=== PATIENT | female | born 2000 | race Two or more races ===

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

== ENCOUNTER 2018-01-19 08:00 | Outpatient (CLI) | payer SELFPAY ==
[2018-01-19 13:01] LABS: HCG,QUALITATIVE BLOOD NEGATIVE
== END 2018-01-19 08:01 | disposition home or self-care (01) ==
LOC: LAB.N 08:00
PROVIDERS: ATTEND Nurse Practitioner Gerontology
DX: N91.2 Amenorrhea, unspecified (principal)
CPT/HCPCS: 36415; 84703

== ENCOUNTER 2018-04-03 16:19 | Outpatient (CLI) | payer MEDICAID | END 2018-04-03 16:20 | disposition home or self-care (01) | LOC: LAB.R 16:19 | PROVIDERS: ATTEND Obstetrics & Gynecology | DX: Z36.9 Encounter for antenatal screening, unspecified (principal); Z11.3 Encounter for screening for infections with a predominantly sexual mode of transmission | CPT/HCPCS: 87491; 87591 ==

== ENCOUNTER 2018-04-26 08:00 | Outpatient (CLI) | payer MEDICAID ==
[2018-04-26 12:31] LABS: BILIRUBIN,URINE NEGATIVE (NEGATIVE); GLUCOSE, URINE (UA) NEGATIVE (NEGATIVE); KETONES,URINE (UA) NEGATIVE (NEGATIVE); LEUKOCYTE ESTERASE, URINE NEGATIVE (NEGATIVE); NITRITE,URINE NEGATIVE (NEGATIVE); OCCULT BLOOD,URINE NEGATIVE (NEGATIVE); PROTEIN,URINE NEGATIVE (NEGATIVE); UROBILINOGEN,URINE 0.2 (NORMAL) E.U./dL (NORMAL)
[2018-04-26 12:32] LABS: CLARITY,URINE CLOUDY (CLEAR)
[2018-04-26 12:52] LABS: BASOPHILS % (AUTO) 0.3 %; EOSINOPHILS % (AUTO) 0.4 %; HGB - HEMOGLOBIN 10.9 g/dL (12.0-16.0); LYMPHOCYTES # (AUTO) 1.3 10^3/uL (1.5-3.5); MEAN CORPUSCULAR HEMOGLOBIN 25.1 pg (27.0-31.0); MEAN CORPUSCULAR HGB CONC 32.7 g/dL (32.0-36.0); MEAN CORPUSCULAR VOLUME 76.7 fL (81.0-99.0); MEAN PLATELET VOLUME 7.8 fL (7.9-10.8); MONOCYTES # (AUTO) 0.7 10^3/uL (0.0-1.0); MONOCYTES % (AUTO) 6.8 %; NEUTROPHILS # (AUTO) 8.4 10^3/uL (1.5-6.6); NEUTROPHILS % (AUTO) 80.5 %; PLT - PLATELET COUNT 277 10^3/uL (130-450); RED BLOOD COUNT 4.34 10^6/uL (4.20-5.40); RED CELL DISTRIBUTION WIDTH 23.7 % (12.0-15.0); WHITE BLOOD COUNT 10.4 x10^3/uL (4.8-10.8)
[2018-04-26 13:13] LABS: AMORPHOUS SEDIMENT,UR Marked /LPF; BACTERIA,URINE None Seen /HPF (None Seen); RBC,URINE 0-5 /HPF (0-5); SQUAMOUS EPITHELIAL CELL,UR MOD Squamous (<= Few)
[2018-04-26 13:54] LABS: PLATELET ESTIMATE, MANUAL NORMAL (130-450,000) (NORMAL); PLATELET MORPHOLOGY NORMAL APPEARANCE (NORMAL); RBC MORPHOLOGY (MULTIPLE) 1+ ANISOCYTOSIS (NORMAL)
[2018-04-27 13:46] LABS: HEPATITIS B SURFACE ANTIGEN NON-REACTIVE (NON-REACTIVE); HEPATITIS C ANTIBODY NON-REACTIVE (NON-REACTIVE)
[2018-04-27 16:17] LABS: HIV AG/AB 4TH GEN NON-REACTIVE (NON-REACTIVE)
== END 2018-04-26 08:01 | disposition home or self-care (01) ==
LOC: LAB.N 08:00
PROVIDERS: ATTEND Obstetrics & Gynecology
DX: Z36.9 Encounter for antenatal screening, unspecified (principal); Z11.3 Encounter for screening for infections with a predominantly sexual mode of transmission
CPT/HCPCS: 36415; 81001; 81599; 85025; 86592; 86762; 86803; 86850; 86900; 86901; 87340; 87389

== ENCOUNTER 2018-05-18 11:28 | Emergency (ER) | payer MEDICAID ==
[2018-05-18 11:38] VITALS: BP 105/73
[2018-05-18] MEDS ORDERED: METOCLOPRAMIDE 10 MG/2 ML VIAL IVP STA (12:44)
[2018-05-18] MEDS ORDERED: SODIUM CHLORIDE 0.9% 1,000 ML IV ONE (12:44)
[2018-05-18] MEDS ORDERED: ACETAMINOPHEN 500 MG TABLET PO STA (12:44)
[2018-05-18 13:32] LABS: BASOPHILS % (AUTO) 0.6 %; EOSINOPHILS % (AUTO) 0.4 %; HGB - HEMOGLOBIN 11.8 g/dL (12.0-16.0); LYMPHOCYTES # (AUTO) 1.2 10^3/uL (1.5-3.5); MEAN CORPUSCULAR HEMOGLOBIN 26.8 pg (27.0-31.0); MEAN CORPUSCULAR HGB CONC 33.4 g/dL (32.0-36.0); MEAN CORPUSCULAR VOLUME 80.1 fL (81.0-99.0); MEAN PLATELET VOLUME 7.4 fL (7.9-10.8); MONOCYTES # (AUTO) 0.6 10^3/uL (0.0-1.0); MONOCYTES % (AUTO) 8.2 %; NEUTROPHILS # (AUTO) 5.9 10^3/uL (1.5-6.6); NEUTROPHILS % (AUTO) 75.8 %; PLT - PLATELET COUNT 249 10^3/uL (130-450); RED BLOOD COUNT 4.39 10^6/uL (4.20-5.40); RED CELL DISTRIBUTION WIDTH 21.8 % (12.0-15.0); WHITE BLOOD COUNT 7.8 x10^3/uL (4.8-10.8)
[2018-05-18 13:43] LABS: ALBUMIN 3.4 g/dL (3.2-5.5); BILIRUBIN,TOTAL 0.3 mg/dL (0.2-1.0); CALCIUM 8.8 mg/dL (8.5-10.3); CREATININE 0.3 mg/dL (0.4-1.0); MAGNESIUM 1.8 mg/dL (1.7-2.8); TOTAL PROTEIN 6.8 g/dL (6.7-8.2)
[2018-05-18 13:48] LABS: BILIRUBIN,URINE NEGATIVE (NEGATIVE); GLUCOSE, URINE (UA) NEGATIVE (NEGATIVE); KETONES,URINE (UA) NEGATIVE (NEGATIVE); LEUKOCYTE ESTERASE, URINE NEGATIVE (NEGATIVE); NITRITE,URINE NEGATIVE (NEGATIVE); OCCULT BLOOD,URINE NEGATIVE (NEGATIVE); PH,URINE 7.5 PH (5.0-7.5); PROTEIN,URINE NEGATIVE (NEGATIVE); UROBILINOGEN,URINE 0.2 (NORMAL) E.U./dL (NORMAL)
[2018-05-18 13:50] LABS: CLARITY,URINE CLOUDY (CLEAR)
[2018-05-18 13:55] LABS: AMORPHOUS SEDIMENT,UR Marked /LPF; BACTERIA,URINE None Seen /HPF (None Seen); RBC,URINE None Seen /HPF (0-5); SQUAMOUS EPITHELIAL CELL,UR MANY Squamous (<= Few)
[2018-05-18 14:22] LABS: PLATELET ESTIMATE, MANUAL NORMAL (130-450,000) (NORMAL); PLATELET MORPHOLOGY NORMAL APPEARANCE (NORMAL)
--- NOTE | 2018-05-18 14:40 | ED Physician Documentation ---
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 The patient reports at the end of the day feeling burning throughout her abdomen. The patient currently denies any acute abdominal pain or focal area of abdominal pain. The patient currently denies nausea or vomiting. Currently the patient feels well and has no acute symptoms. The patient denies vaginal bleeding or vaginal discharge or pressure in her pelvis. No other associated symptoms. Currently no symptoms. When she does have symptoms they are moderate. Review of Systems Constitutional: denies: Fever, Chills Eyes: denies: Discharge Ears: denies: Ear pain Nose: denies: Congestion Throat: denies: Dental pain / toothache Cardiac: denies: Chest pain / pressure Respiratory: denies: Dyspnea GI: reports: Abdominal Pain, Nausea, Vomiting : denies: Dysuria, Hematuria, Vaginal bleeding Skin: denies: Rash Musculoskeletal: denies: Neck pain Neurologic: denies: Generalized weakness Immunocompromised: denies: Chemotherapy PD PAST MEDICAL HISTORY - Past Medical History Past Medical History: No Cardiovascular: None Respiratory: None Neuro: None Endocrine/Autoimmune: None GI: None 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 : None HEENT: None Psych: None Musculoskeletal: None Derm: None - Past Surgical History Past Surgical History: No - Present Medications Home Medications: Ambulatory Orders Medication Instructions Recorded Confirmed Metoclopramide [Reglan] 10 mg PO Q6H PRN #30 tablet 05/18/18 - Allergies Allergies/Adverse Reactions: Allergies Allergy/AdvReac Type Severity Reaction Status Date / Time No Known Drug Allergies Allergy Verified 05/18/18 11:38 - Social History Does the pt smoke?: No Smoking Status: Never smoker Does the pt drink ETOH?: No Does the pt have substance abuse?: No - Immunizations Immunizations are current?: Yes - POLST Patient has POLST: No PD ED PE NORMAL - General General: Alert and oriented X 3, No acute distress - HEENT HEENT: Atraumatic, PERRL, EOMI, Ears normal - Neck Neck: Supple, no meningeal sign - Cardiac Cardiac: RRR, Strong equal pulses - Respiratory Respiratory: No respiratory distress, Clear bilaterally - Abdomen Abdomen: Normal bowel sounds, Soft, Non tender, Non distended - Back Back: No CVA TTP - Derm Derm: Normal color, Warm and dry, No rash - Extremities Extremities: No deformity, Normal ROM s pain - Neuro Neuro: Alert and oriented X 3, Normal speech - Psych Psych: Normal mood Results - Vitals Vitals: Vital Signs - 24 hr 05/18/18 11:36 Temperature 36.8 C Heart Rate 92 Respiratory 16 Rate Blood Pressure 105/73 O2 Saturation 99 Oxygen O2 Source Room air - Labs Labs: Laboratory Tests 05/18/18 05/18/18 05/18/18 11:45 13:10 13:10 WBC 7.8 RBC 4.39 Hgb 11.8 L Hct 35.2 L MCV 80.1 L MCH 26.8 L MCHC 33.4 RDW 21.8 H Plt Count 249 MPV 7.4 L Neut # (Auto) 5.9 Lymph # (Auto) 1.2 L [place] # (Auto) 0.6 Eos # (Auto) 0.0 Baso # (Auto) 0.0 Absolute Nucleated RBC 0.00 Nucleated RBC % 0.0 Manual Slide Review Indicated WBC Morphology NORMAL APPEARANCE Platelet Estimate NORMAL (130-450,000) Platelet Morphology NORMAL APPEARANCE RBC Morph Micro Appear 1+ OVALOCYTES Sodium 134 L Potassium 3.6 Chloride 107 Carbon Dioxide 19 L Anion Gap 8.0 BUN 5 L Creatinine 0.3 L Estimated GFR (MDRD) 287 Glucose 82 Calcium 8.8 Magnesium 1.8 Total Bilirubin 0.3 AST 21 ALT 13 Alkaline Phosphatase 58 Total Protein 6.8 Albumin 3.4 Globulin 3.4 Albumin/Globulin Ratio 1.0 Lipase 24 Urine Color YELLOW Urine Clarity CLOUDY Urine pH 7.5 Ur Specific Levels 1.010 Urine Protein NEGATIVE Urine Glucose (UA) NEGATIVE Urine Ketones NEGATIVE Urine Occult Blood NEGATIVE Urine Nitrite NEGATIVE Urine Bilirubin NEGATIVE Urine Urobilinogen 0.2 (NORMAL) Ur Leukocyte Esterase NEGATIVE Urine RBC None Seen Urine WBC 4-5 Ur Squamous Epith Cells MANY Squamous H Amorphous Sediment Marked Urine Bacteria None Seen Ur Microscopic Review INDICATED Urine Culture Comments NOT INDICATED PD MEDICAL DECISION MAKING - ED course ED course: On reevaluation the patient still continues to have no acute symptoms. The patient currently has no abdominal pain or focal area of abdominal tenderness. Currently the patient appears appropriate for discharge home and ongoing outpatient management. The patient has reassuring heart tones which are in the 140s. I discussed with the patient warning signs for more serious etiology, including appendicitis and gave warning signs. I advise close follow- up with her ADVISOR [employer]. I advised returning to the emergency department immediately for worsening or any concerns. - Sepsis Event Vital Signs: Vital Signs - 24 hr 05/18/18 11:36 Temperature 36.8 C Heart Rate 92 Respiratory 16 Rate Blood Pressure 105/73 O2 Saturation 99 Oxygen O2 Source Room air Departure - Departure Disposition: Home, Self Care Clinical Impression: Abdominal pain affecting Nausea and vomiting Qualifiers: Vomiting type: unspecified Vomiting Intractability: non-intractable Qualified Code(s): R11.2 - Nausea with vomiting, unspecified Condition: Good Instructions: Abdominal Pain, ED Preg Morning Sickness Prescriptions: Metoclopramide [Reglan] 10 mg PO Q6H PRN #30 tablet PRN Reason: Nausea / Vomiting Comments: Please follow-up with your ADVISOR [employer] in 1 week. Please return to the emergency department for worsening symptoms or any concerns.
== END 2018-05-18 15:01 | disposition home or self-care (01) ==
LOC: ED 11:28
DX: O99.89 Other specified diseases and conditions complicating pregnancy, childbirth and the puerperium (principal); R10.9 Unspecified abdominal pain; Z3A.16 16 weeks gestation of pregnancy
CPT/HCPCS: 36415; 80053; 81001; 83690; 83735; 85025; 96374; 99283; A9270; J2765; 81003; 87086

== ENCOUNTER 2018-05-28 17:14 | Outpatient (CLI) | payer MEDICAID | END 2018-05-28 17:15 | disposition home or self-care (01) | LOC: LAB 17:14 | PROVIDERS: ATTEND Obstetrics & Gynecology | DX: Z13.79 Encounter for other screening for genetic and chromosomal anomalies (principal) | CPT/HCPCS: 36415; 81599; 82105; 82677; 84702; 86336 ==

== ENCOUNTER 2018-06-18 12:37 | Outpatient (CLI) | payer MEDICAID ==
--- NOTE | 2018-06-18 14:37 | Ultrasound Report ---
Procedure Date: 06/18/2018 Accession Number: [id number] / [id number] Procedure: US - OB Detailed Eval CPT Code: FULL RESULT: EXAM: COMPLETE OBSTETRICAL ULTRASOUND EXAM DATE: 06/18/2018 02:00 PM. CLINICAL HISTORY: anatomic survey. COMPARISON: None. TECHNIQUE: Real-time sonographic evaluation of the fetus performed by the pipe cleaner. Multiple hospital insurance representative static images were saved for review. DATING: LMP: Uncertain EGA 20 weeks 1 day with CHUN 11/04/2018 based on the current ultrasound. GENERAL EVALUATION Mcdonnell . Cardiac activity: 157 bpm. movement: Present. Presentation: Cephalic. Placenta: Posterior position. No evidence for previa. Umbilical cord: 3 vessel cord. Central placental cord origin. Amniotic fluid: Subjectively normal. MVP 4.5 cm. BIOMETRY Bi-Parietal Diameter (BPD): 4.6 cm, 20 weeks 0 days Head Circumference (HC): 17.3 cm, 19 weeks 6 days Abdominal Circumference (AC): 14.8 cm, 20 weeks 0 days Femur Length (FL): 3.3 cm, 20 weeks 3 days Estimated Weight: 338 gm. ANATOMY The intracranial structures, profile, face/nose/lips, spine, 4 chamber heart and outflow tracts, stomach, abdominal wall and cord insertion, diaphragm, kidneys, bladder, and extremities were seen and demonstrate no abnormality. MATERNAL STRUCTURES Uterus: Unremarkable. Cervix: Long and closed. Transabdominal length cm. Right ovary/adnexa: Unremarkable. Left ovary/adnexa: Unremarkable. Free fluid: None. IMPRESSION: 1. Mcdonnell intrauterine with gestational age 20 weeks 1 day based on composite ultrasound measurements today. CHUN 11/04/2018. 2. Estimated weight is within expected limits for assigned dating. 3. Normal anatomic survey. No anatomic abnormalities are detected at this time. [facility]
== END 2018-06-18 12:38 | disposition home or self-care (01) ==
LOC: DI 12:37
PROVIDERS: ATTEND Obstetrics & Gynecology
DX: Z36.9 Encounter for antenatal screening, unspecified (principal)
CPT/HCPCS: 76811

== ENCOUNTER 2018-10-01 08:00 | Outpatient (CLI) | payer MEDICAID ==
[2018-10-01 19:27] LABS: HGB - HEMOGLOBIN 13.6 g/dL (12.0-16.0); MEAN CORPUSCULAR HEMOGLOBIN 30.9 pg (27.0-31.0); MEAN CORPUSCULAR HGB CONC 33.1 g/dL (32.0-36.0); MEAN CORPUSCULAR VOLUME 93.3 fL (81.0-99.0); MEAN PLATELET VOLUME 8.9 fL (7.9-10.8); RED BLOOD COUNT 4.41 10^6/uL (4.20-5.40); RED CELL DISTRIBUTION WIDTH 15.1 % (12.0-15.0); WHITE BLOOD COUNT 10.7 x10^3/uL (4.8-10.8)
== END 2018-10-01 23:59 | disposition home or self-care (01) ==
LOC: LAB.N 08:00
PROVIDERS: ATTEND Registered Nurse
DX: Z33.1 Pregnant state, incidental (principal)
CPT/HCPCS: 36415; 82950; 85027; 86850

== ENCOUNTER 2018-10-09 08:00 | Outpatient (CLI) | payer MEDICAID | END 2018-10-09 23:59 | disposition home or self-care (01) | LOC: LAB.R 08:00 | PROVIDERS: ATTEND Obstetrics & Gynecology | DX: Z3A.36 36 weeks gestation of pregnancy (principal) | CPT/HCPCS: 87081 ==

== ENCOUNTER 2018-10-13 14:41 | Outpatient (CLI) | payer MEDICAID ==
[2018-10-13 14:53] VITALS: BP 132/79
== END 2018-10-13 15:10 | disposition home or self-care (01) ==
LOC: WFO 14:41 → FBP 14:43 → WFO 15:10
PROVIDERS: ATTEND Obstetrics & Gynecology
DX: O99.89 Other specified diseases and conditions complicating pregnancy, childbirth and the puerperium (principal); R04.2 Hemoptysis
CPT/HCPCS: 59025

== ENCOUNTER 2018-10-13 15:11 | Emergency (ER) | payer MEDICAID ==
[2018-10-13 15:16] VITALS: BP 113/79
--- NOTE | 2018-10-13 15:24 | ED Physician Documentation ---
PD HPI CHEST PAIN - Stated complaint Stated Complaint: COUGHING UP BLOOD/37 WKS - Chief complaint Chief Complaint: Resp - History obtained from History obtained from: Patient - History of Present Illness Timing - onset: Other (This is a 18-year-old G1 who is 37 weeks . No problems with this , her OB is Dr. Felicia Palomo. She is been progressively short of breath throughout the late which does not concern her too much but she also notes bilateral pedal edema, right greater than left for the last week and today went to labor and delivery because she had several episodes of hemoptysis today. She continues to have a cough. There is no chest pain. There is no further hemoptysis.) Review of Systems Ten Systems: 10 systems reviewed and negative Constitutional: denies: Fever, Chills, Myalgias Ears: denies: Loss of hearing, Ear pain Nose: denies: Rhinorrhea / runny nose, Congestion, Epistaxis Throat: denies: Sore throat Cardiac: denies: Chest pain / pressure, Palpitations Respiratory: reports: Dyspnea, Cough, Hemoptysis. 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 - Past Surgical History Past Surgical History: No - Present Medications Home Medications: Ambulatory Orders Medication Instructions Recorded Confirmed No Known Home Medications 10/13/18 10/13/18 - Allergies Allergies/Adverse Reactions: Allergies Allergy/AdvReac Type Severity Reaction Status Date / Time No Known Drug Allergies Allergy Verified 10/13/18 15:16 - Social History Does the pt smoke?: No Smoking Status: Never smoker Does the pt drink ETOH?: No Does the pt have substance abuse?: No - Immunizations Immunizations are current?: Yes - POLST Patient has POLST: No PD ED PE NORMAL - Vitals Vital signs reviewed: Yes - General General: Alert and oriented X 3, No acute distress - HEENT HEENT: PERRL, EOMI, Pharynx benign - Neck Neck: Supple, no meningeal sign, No bony TTP - Cardiac Cardiac: RRR, No murmur - Respiratory Respiratory: No respiratory distress, Clear bilaterally - Abdomen Abdomen: Non tender (gravid) - Back Back: No CVA TTP, No spinal TTP - Derm Derm: Normal color, Warm and dry - Extremities Extremities: Other (Mild bilateral pedal edema, right greater than left without calf tenderness.) - Neuro Neuro: Alert and oriented X 3, Normal speech Results - Vitals Vitals: Vital Signs - 24 hr 10/13/18 15:15 Temperature 36.6 C Heart Rate 74 Respiratory 18 Rate Blood Pressure 113/79 O2 Saturation 98 Oxygen O2 Source Room air - Labs Labs: Laboratory Tests 10/13/18 10/13/18 10/13/18 15:27 15:27 15:27 WBC 11.4 H RBC 4.17 L Hgb 13.2 Hct 38.2 MCV 91.7 MCH 31.6 H MCHC 34.5 RDW 15.1 H Plt Count 235 MPV 8.5 Neut # (Auto) 8.6 H Lymph # (Auto) 1.9 [place] # (Auto) 0.8 Eos # (Auto) 0.0 Baso # (Auto) 0.0 Absolute Nucleated RBC 0.01 Nucleated RBC % 0.1 D-Dimer 383.9 H Sodium 134 L Potassium 4.1 Chloride 108 Carbon Dioxide 18 L Anion Gap 8.0 BUN 12 Creatinine 0.5 Estimated GFR (MDRD) 157 Glucose 102 H Calcium 8.9 Total Bilirubin 0.4 AST 23 ALT 20 Alkaline Phosphatase 176 H Total Protein 6.8 Albumin 3.0 L Globulin 3.8 Albumin/Globulin Ratio 0.8 L Lipase 23 - Rads (name of study) 2v chest Radiology: EMP read contemporaneously (normal) PD MEDICAL DECISION MAKING - ED course ED course: 18-year-old presents with cough and some hemoptysis. Given her status concern for PE. Her lower extremity Doppler is negative and her d-dimer although flags is positive it is less than 2.5 times the upper limit of normal which is what is accepted by most experts for the third trimester of . Departure - Departure Disposition: 01 Home, Self Care Clinical Impression: Hemoptysis Upper respiratory tract infection Qualifiers: URI type: unspecified viral URI Qualified Code(s): J06.9 - Acute upper respiratory infection, unspecified Qualifiers: Weeks of gestation: 37 weeks Qualified Code(s): Z3A.37 - 37 weeks gestation of Condition: Good Record reviewed to determine appropriate education?: Yes Instructions: ED Viral Syndrome Comments: Return for any new or worsening symptoms, especially if you become more short of breath or dizzy.
[2018-10-13 15:33] LABS: BASOPHILS % (AUTO) 0.3 %; EOSINOPHILS % (AUTO) 0.2 %; HGB - HEMOGLOBIN 13.2 g/dL (12.0-16.0); LYMPHOCYTES # (AUTO) 1.9 10^3/uL (1.5-3.5); LYMPHOCYTES % (AUTO) 16.7 %; MEAN CORPUSCULAR HEMOGLOBIN 31.6 pg (27.0-31.0); MEAN CORPUSCULAR HGB CONC 34.5 g/dL (32.0-36.0); MEAN CORPUSCULAR VOLUME 91.7 fL (81.0-99.0); MEAN PLATELET VOLUME 8.5 fL (7.9-10.8); MONOCYTES # (AUTO) 0.8 10^3/uL (0.0-1.0); MONOCYTES % (AUTO) 7.2 %; NEUTROPHILS # (AUTO) 8.6 10^3/uL (1.5-6.6); NEUTROPHILS % (AUTO) 75.6 %; PLT - PLATELET COUNT 235 10^3/uL (130-450); RED BLOOD COUNT 4.17 10^6/uL (4.20-5.40); RED CELL DISTRIBUTION WIDTH 15.1 % (12.0-15.0); WHITE BLOOD COUNT 11.4 x10^3/uL (4.8-10.8)
[2018-10-13 15:47] LABS: ALBUMIN/GLOBULIN RATIO 0.8 (1.0-2.2); BILIRUBIN,TOTAL 0.4 mg/dL (0.2-1.0); CALCIUM 8.9 mg/dL (8.5-10.3); CREATININE 0.5 mg/dL (0.4-1.0); TOTAL PROTEIN 6.8 g/dL (6.7-8.2)
--- NOTE | 2018-10-13 16:09 | XRAY Report ---
Reason: Cough, hemoptysis, shield abd Procedure Date: 10/13/2018 Accession Number: [id number] / [id number] Procedure: XR - Chest 2 View X-Ray CPT Code: 69221 FULL RESULT: EXAM: CHEST RADIOGRAPHY EXAM DATE: 10/13/2018 03:47 PM. CLINICAL HISTORY: Cough, hemoptysis, shield abd. COMPARISON: 02/27/2008. TECHNIQUE: 2 views. FINDINGS: Lungs/Pleura: No focal consolidation. No pleural effusion. No pneumothorax. Normal volumes. Mediastinum: Heart and mediastinal contours are normal. Other: None. IMPRESSION: No acute cardiopulmonary abnormality. [facility]
--- NOTE | 2018-10-13 16:39 | Ultrasound Report ---
Reason: BLE edema R>L Procedure Date: 10/13/2018 Accession Number: [id number] / [id number] Procedure: US - Duplex Ext Veins Bilateral CPT Code: FULL RESULT: EXAM: BILATERAL LOWER EXTREMITY VENOUS ULTRASOUND EXAM DATE: 10/13/2018 04:28 PM. CLINICAL HISTORY: Bilateral lower extremity edema. COMPARISON: None. TECHNIQUE: Real-time sonographic vascular imaging was performed by the managing consultant clinical professor through the lower extremities utilizing both color-flow and Doppler spectral analysis. Multiple guest experience representative static images were saved for review. FINDINGS: Right: Common Femoral Vein (CFV): Normal. CFV-GSV Junction: Normal. Profunda Femoral Vein (PFV): Normal. Femoral Vein (FV) Prox: Normal. Femoral Vein (FV) Mid: Normal. Femoral Vein (FV) Dist: Normal. Popliteal Vein: Normal. Posterior Tibial Veins: Normal. Peroneal Veins: Normal. Left: Common Femoral Vein (CFV): Normal. CFV-GSV Junction: Normal. Profunda Femoral Vein (PFV): Normal. Femoral Vein (FV) Prox: Normal. Femoral Vein (FV) Mid: Normal. Femoral Vein (FV) Dist: Normal. Popliteal Vein: Normal. Posterior Tibial Veins: Normal. Peroneal Veins: Normal. Other: None. IMPRESSION: No evidence for deep venous thrombosis bilaterally. [facility]
== END 2018-10-13 16:54 | disposition home or self-care (01) ==
LOC: ED 15:11
DX: O99.89 Other specified diseases and conditions complicating pregnancy, childbirth and the puerperium (principal); R04.2 Hemoptysis; J06.9 Acute upper respiratory infection, unspecified; Z3A.37 37 weeks gestation of pregnancy
CPT/HCPCS: 36415; 59025; 71046; 80053; 83690; 85025; 85379; 93970; 99282; 99283

== ENCOUNTER 2018-10-19 16:02 | Outpatient (CLI) | payer MEDICAID ==
[2018-10-19 16:55] LABS: RUPTURE OF MEMBRANES PLUS NEGATIVE (NEGATIVE)
== END 2018-10-19 17:45 | disposition home or self-care (01) ==
LOC: WFO 16:02 → FBP 16:04 → WFO 17:45
PROVIDERS: ATTEND Obstetrics & Gynecology
DX: O99.89 Other specified diseases and conditions complicating pregnancy, childbirth and the puerperium (principal); R10.2 Pelvic and perineal pain; Z3A.37 37 weeks gestation of pregnancy
CPT/HCPCS: 59025; 84112

== ENCOUNTER 2018-10-19 23:32 | Outpatient (CLI) | payer MEDICAID ==
[2018-10-20] MEDS ORDERED: MORPHINE 10 MG/ML VIAL IVP ONE (01:10)
[2018-10-20] MEDS ORDERED: MORPHINE 10 MG/ML VIAL IM PRN (01:12)
[2018-10-20] MEDS ORDERED: PROMETHAZINE 25 MG/1 ML VIAL IM PRN (01:15)
[2018-10-20 04:13] VITALS: BP 130/81
--- NOTE | 2018-10-20 15:29 | PROVIDER PROGRESS NOTE ---
Subjective - Prog Note Date Prog Note Date: 10/19/18 Prog Note Time: 19:00 - Subjective Subjective: Nancy Rooney is a 18-year-old primigravida at 37 weeks 5 days gestation who complains of pelvic pressure and contractions. She was seen earlier in the day in the office and found to have a low station +2 with a far posterior cervix. Cervix was dilated no greater than 2 and it was difficult to tell effacement. She did not believe she was leaking of fluids. She was sent for observation and serial's cervical exam. Physical exam Patient quite nervous since this is her first child. She has no signs or symptoms suggestive of preeclampsia. External heart tracing reactive, category 1 baseline 140s with multiple accelerations rare mild variable deceleration Uterine irritability with a background contraction rate of about every 6minutes. Cervix essentially unchanged on serial exam is still at 1-2 posterior with a low station of +2. Patient advised of signs and symptoms of labor. She was given therapeutic rest morphine 10 mg with Phenergan 25 mg IM patient to return next week as scheduled unless labor ensues.
== END 2018-10-20 02:19 | disposition home or self-care (01) ==
LOC: WFO 23:32 → FBP 23:46 → WFO 10-20 02:19
PROVIDERS: ATTEND Obstetrics & Gynecology
DX: O99.89 Other specified diseases and conditions complicating pregnancy, childbirth and the puerperium (principal); R10.2 Pelvic and perineal pain; Z3A.37 37 weeks gestation of pregnancy
CPT/HCPCS: 59025; 84112; 99212

== ENCOUNTER 2018-10-21 17:38 | Outpatient (CLI) | payer MEDICAID ==
[2018-10-21 18:03] VITALS: BP 131/74
[2018-10-21 19:02] LABS: RUPTURE OF MEMBRANES PLUS NEGATIVE (NEGATIVE)
--- NOTE | 2018-10-22 07:31 | PROVIDER PROGRESS NOTE ---
Subjective - Prog Note Date Prog Note Date: 10/21/18 Prog Note Time: 19:00 - Subjective Subjective: Mrs. Hernández is a 18-year-old primigravida at 38 weeks 1 day gestation. She reports possible leakage of fluid. She is known to have a low head at +2 station and therefore pelvic pressure. SROM was done which was negative. Nursing cervical examination finds +2 station 1cm non-effaced cervix which is baseline. External monitoring strip 140s excels meeting criteria no contractions record recorded no decelerations Assessment: 38-week gestation not in labor. Plan: Patient informed of exam and membranes intact. She is to keep her next scheduled obstetrics appointment Objective - Lab Results Other Labs: Lab Results x24hrs 10/21/18 Range/Units 18:00 Membranes Rupture NEGATIVE (NEGATIVE)
== END 2018-10-21 19:05 | disposition home or self-care (01) ==
LOC: WFO 17:38 → FBP 17:40 → WFO 19:05
PROVIDERS: ATTEND Obstetrics & Gynecology
DX: O99.89 Other specified diseases and conditions complicating pregnancy, childbirth and the puerperium (principal); R10.2 Pelvic and perineal pain; Z3A.38 38 weeks gestation of pregnancy
CPT/HCPCS: 84112; 99213

== ENCOUNTER 2018-10-25 18:51 | Inpatient (IN) | payer MEDICAID ==
[2018-10-25] MEDS ORDERED: ONDANSETRON 4 MG/2 ML VIAL IVP PRN ×2 (20:20→23:59)
[2018-10-25] MEDS ORDERED: fentaNYL 100 MCG/2 ML VIAL IVP PRN (20:20)
[2018-10-25] MEDS: LACTATED RINGERS 1,000 ML IV SCH ×2 (21:12→23:08)
[2018-10-25 21:45] LABS: BASOPHILS % (AUTO) 0.4 %; EOSINOPHILS % (AUTO) 0.3 %; HGB - HEMOGLOBIN 13.3 g/dL (12.0-16.0); LYMPHOCYTES # (AUTO) 2.6 10^3/uL (1.5-3.5); LYMPHOCYTES % (AUTO) 20.4 %; MEAN CORPUSCULAR HEMOGLOBIN 32.5 pg (27.0-31.0); MEAN CORPUSCULAR HGB CONC 34.8 g/dL (32.0-36.0); MEAN CORPUSCULAR VOLUME 93.4 fL (81.0-99.0); MEAN PLATELET VOLUME 8.4 fL (7.9-10.8); MONOCYTES # (AUTO) 0.8 10^3/uL (0.0-1.0); NEUTROPHILS # (AUTO) 9.2 10^3/uL (1.5-6.6); NEUTROPHILS % (AUTO) 72.9 %; PLT - PLATELET COUNT 228 10^3/uL (130-450); RED BLOOD COUNT 4.09 10^6/uL (4.20-5.40); RED CELL DISTRIBUTION WIDTH 15.1 % (12.0-15.0); WHITE BLOOD COUNT 12.6 x10^3/uL (4.8-10.8)
--- NOTE | 2018-10-25 21:46 | HISTORY & PHYSICAL EXAMINATION ---
Admit History - Visit Reason Visit Reason: Contractions (Strong contractions at 1830) - : 1 Parity: 0 Premature: 0 Ectopic: 0 : 0 Care: positive: [facility] Risk/History: positive: None Complications This : positive: None Smoking Status: Never smoker - Mother's Labs Mother's Blood Type: positive: O Mother's RH: positive: Positive GBS: positive: Group B Step Negative Rubella Status: positive: Immune Meds/Allgy - Home Medications Home Medications: Ambulatory Orders Medication Instructions Recorded Confirmed No Known Home Medications 10/13/18 10/13/18 - Allergies Allergies/Adverse Reactions: Allergies Allergy/AdvReac Type Severity Reaction Status Date / Time No Known Drug Allergies Allergy Verified 10/13/18 15:16 Review of Systems - Constitutional Constitutional: denies: Fatigue Physical - Abdominal Exam Vital Signs: Temp Pulse Resp BP Pulse Ox 36.6 C 86 18 127/89 H 99 10/25/18 19:03 10/25/18 19:00 10/25/18 19:00 10/25/18 19:03 10/25/18 19:03 Contraction Intensity: positive: Moderate to strong Uterine Resting Tone: positive: Soft - Monitoring Strip Review: positive: Category I - Presentation Presentation: positive: Vertex - Vaginal Exam Membranes: positive: Membranes intact Dilation (in cm): 5 Effacement (%): 90 Station: positive: 1 Cervical Position: positive: Posterior Plan for Labor - Plan For Labor I expect patient to be DC'd or transferred within 96 hours.: Yes Plan for Labor: Pt is a 18 yo EDC 11/04/2018, 38.5 weeks spontanious labor Admit Epidural PRN
[2018-10-25] MEDS ORDERED: LACTATED RINGERS 1,000 ML IV ONE (22:47)
[2018-10-25] MEDS ORDERED: fent/BUPIV 2 MCG/0.125% 250 ML EP ONE (23:05)
--- NOTE | 2018-10-25 23:55 | ANESTHESIA ---
Pre-Anesthesia VS, & Labs - Diagnosis IUP, term labor - Procedure KHAI Vital Signs: Temp Pulse Resp BP Pulse Ox 37.4 C 86 18 127/89 H 99 10/25/18 22:00 10/25/18 19:00 10/25/18 19:00 10/25/18 19:03 10/25/18 19:03 Height 5 ft 1 in Weight (kg) 66.678 kg Body Mass Index 27.8 - NPO Last Fluid Intake: t/o day - Is Patient ?: Yes - Lab Results Current Lab Results: Laboratory Tests 10/25/18 21:25: WBC 12.6 H, RBC 4.09 L, Hgb 13.3, Hct 38.2, MCV 93.4, MCH 32.5 H , MCHC 34.8, RDW 15.1 H, Plt Count 228, MPV 8.4, Neut # (Auto) 9.2 H, Lymph # (Auto) 2.6, [place] # (Auto) 0.8, Eos # (Auto) 0.0, Baso # (Auto) 0.0, Absolute Nucleated RBC 0.00, Nucleated RBC % 0.0 Fish Bones: 10/25/18 21:25 Home Medications and Allergies Active Medications Fentanyl (Fentanyl) 50 mcg IVP Q1H PRN PRN Reason: PAIN Lactated Ringer's (Lr) 1,000 mls @ 150 mls/hr IV .Q6H40M MALAIKA Last Admin: 10/25/18 23:08 Dose: 150 mls/hr Oxytocin/Sodium Chloride (Pitocin/Sodium Chloride) 500 mls @ 1 mls/hr IV TITR MALAIKA; Protocol Ondansetron HCl (Zofran Inj) 4 mg IVP Q4H PRN PRN Reason: Nausea / Vomiting Sodium Chloride (Normal Saline Flush 0.9%) 10 ml IVP PRN PRN PRN Reason: NEEDED PER PROVIDER ORDERS No Known Home Medications 10/13/18 Allergies/Adverse Reactions: Allergies Allergy/AdvReac Type Severity Reaction Status Date / Time No Known Drug Allergies Allergy Verified 10/13/18 15:16 Anes History & Medical History - Anesthetic History Anesthesia Complications: reports: No previous complications Family history of Anesthesia Complications: Denies Family history of Malignant Hyperthermia: Denies - Medical History Cardiovascular: reports: None Pulmonary: reports: None Gastrointestinal: reports: None Urinary: reports: None Neuro: reports: None Musculoskeletal: reports: None Endocrine/Autoimmune: reports: None Blood Disorders: reports: Anemia Skin: reports: None Smoking Status: Never smoker - Obstetrical History : 1 Parity: 0 Events: positive: None Complications: positive: None Exam General: Alert, Oriented x3, Cooperative Dental: WNL Mouth Openin Fingerbreadth Neck Mobility: Normal Mallampati classification: II Cardiovascular: Regular rate Neurological: Normal speech Mental/Cognitive Status: Alert/Oriented X3 Plan Anesthesia Type: Epidural Consent for Procedure(s) Verified and Reviewed: Yes Code Status: Attempt Resuscitation ASA classification: 2-Mild systemic disease Is this case an emergency?: No
[2018-10-25] MEDS ORDERED: NALBUPHINE 10 MG/ML AMP IVP PRN (23:59)
[2018-10-25] MEDS ORDERED: fent/BUPIV 2 MCG/0.125% 250 ML EP PRN (23:59)
[2018-10-25] MEDS ORDERED: diphenhydrAMINE INJ 50 MG/ML VIAL IVP PRN (23:59)
[2018-10-26] MEDS: LACTATED RINGERS 1,000 ML IV SCH ×3 (03:05→17:47)
--- NOTE | 2018-10-26 06:36 | PROVIDER PROGRESS NOTE ---
Labor Progress Note - Uterine Monitoring Uterine Monitoring Mode: positive: External toco : 6 Contraction Intensity: positive: Mild to moderate Uterine Resting Tone: positive: Soft - Monitoring Monitor Mode: positive: External ultrasound Heart Rate Baseline: 140 Heart Rate Variability: positive: Moderate (6-25 bmp) Accelerations: positive: Present, 15x15 Decelerations: positive: None Strip Review: positive: Category I - Vaginal Exam Dilation (in cm): 5 Effacement (%): 90% Station: 1 Cervical Position: Midposition - Labor Progress Note Labor Progress Note/Additional Text: Pt is slowy progressing. AROM to help accelerate labor
[2018-10-26] MEDS ORDERED: fentaNYL 100 MCG/2 ML VIAL ONE (07:51)
[2018-10-26 08:54] LABS: CREATININE,URINE 18.7 mg/dL
[2018-10-26 08:55] LABS: TOTAL PROTEIN,URINE TIMED < 6 mg/dL
[2018-10-26] MEDS: OXYTOCIN/SODIUM CHLORIDE 500 ML IV SCH (08:55)
--- NOTE | 2018-10-26 09:19 | ANESTHESIA PROCEDURE NOTE ---
Anesthesia Epidural Template - Other Comments Other Comments: Called to evaluate epidural due to patient complains of pain with contractions. On arrival, no level of anesthesia was present. Suspect epidural catheter dislodgment. Discussed replacing epidural with patient and she agreed to proceed. Patient was placed in a sitting position and the previously placed epidural was removed with tip intact. Back was prepped with chloroprep. The L4- L5 interspace was localized with 3ml of 1% lidocaine and a 17Ga Tuohy needle was inserted. SCOTTIE was found at 5cm and a 27G ashwini needle was inserted thru tuohy with return of clear fluid. A total of 20mcg fentanyl was injected intrathecal. Flexible catheter was inserted and advanced with ease to 11cm. Negative aspiration and negative test dose was noted. Catheter was secured and previously running PCEA was continued. Patient reported she had zero pain with contractions .
--- NOTE | 2018-10-26 11:15 | PROVIDER PROGRESS NOTE ---
Labor Progress Note - Uterine Monitoring Uterine Monitoring Mode: positive: External toco : not picking up well Contraction Intensity: positive: Moderate to strong Uterine Resting Tone: positive: Soft - Monitoring Monitor Mode: positive: External ultrasound, Spiral electrode (changed from external to scalp electrode) Heart Rate Variability: positive: Moderate (6-25 bmp) (Strip went from moderate to decreased) Decelerations: positive: Variable (deep to nadar of 70 lasted 5 min.) Strip Review: positive: Category II - Vaginal Exam Dilation (in cm): 7 Effacement (%): 100 Station: 1 Cervical Position: Anterior - Labor Progress Note Labor Progress Note/Additional Text: Pt has a prolonged deceleration FSE placed as well as IUPC. strip responded to 130's with decreased variability. Pit stopped and IV bolas given strip responded. good cervical progress.
--- NOTE | 2018-10-26 12:24 | PROVIDER PROGRESS NOTE ---
Labor Progress Note - Uterine Monitoring Uterine Monitoring Mode: positive: External toco (changed to external as IUPC no t functioning.) Contraction Frequency (min/apart): 4 Contraction Intensity: positive: Moderate to strong Uterine Resting Tone: positive: Soft - Monitoring Monitor Mode: positive: Spiral electrode Heart Rate Baseline: 120 Heart Rate Variability: positive: Moderate (6-25 bmp) Accelerations: positive: Present, 15x15 (with scalp stimulation) Decelerations: positive: Variable (down to 90 lasted for 1 min) Strip Review: positive: Category II - Vaginal Exam Dilation (in cm): 8 Effacement (%): 100% Station: 1 Cervical Position: Anterior - Labor Progress Note Labor Progress Note/Additional Text: . Progressing changed to external.
[2018-10-26] MEDS ORDERED: LACTATED RINGERS 100 ML IV ONE (14:15)
--- NOTE | 2018-10-26 14:15 | PROVIDER PROGRESS NOTE ---
Labor Progress Note - Uterine Monitoring Contraction Intensity: positive: Mild to moderate Uterine Resting Tone: positive: Soft - Monitoring Monitor Mode: positive: Spiral electrode Heart Rate Baseline: 120-30 Heart Rate Variability: positive: Moderate (6-25 bmp) Decelerations: positive: None Strip Review: positive: Category II - Vaginal Exam Dilation (in cm): 8 Effacement (%): 100% Station: 1 Cervical Position: Anterior - Labor Progress Note Labor Progress Note/Additional Text: Pt has developed bright red vaginal with marked left sidedpain suspect abruption. STAT SC. R&B QAA.
[2018-10-26] MEDS ORDERED: CITRIC ACID/SODIUM CITRATE 15 ML UDC PO ONE (14:23)
[2018-10-26] MEDS ORDERED: diphenhydrAMINE INJ 50 MG/ML VIAL IVP PRN (14:34)
[2018-10-26] MEDS: CITRIC ACID/SODIUM CITRATE 15 ML UDC PO SCH ×2 (14:35→15:01)
[2018-10-26] MEDS ORDERED: LACTATED RINGERS 1,000 ML IV ONE ×2 (14:36→16:10)
--- NOTE | 2018-10-26 15:45 | OPERATIVE REPORT ---
Operative Report - General Admit Date: 10/25/18 Procedure Date: 10/26/18 Planned Procedure: STAT PLTC/S Pre-Op Diagnosis: R/O abruption Procedure Performed: STAT PLTC/S Post Op Diagnosis: low lying umbilical cord - Procedure Note Primary Surgeon: Kaz Peralta MD Secondary Surgeon: Delbert MONTOYA Anesthesia Provider: Shell Inman Anesthesia Technique: Epidural Pathology: Placenta IV Fluids (mL): 1,000 Estimated Blood Loss (mL): 500 Urine Output (mL): 400 Drain/Tube Type: Other (Vound VAC)
[2018-10-26] MEDS ORDERED: ONDANSETRON 4 MG/2 ML VIAL IVP ONE (16:00)
[2018-10-26] MEDS ORDERED: LIDOCAINE 2% 10 ML MDV SUBQ ONE (16:00)
[2018-10-26] MEDS ORDERED: LIDOCAINE-MPF 2% 5 ML VIAL IM ONE (16:00)
[2018-10-26] MEDS ORDERED: KETOROLAC 30 MG/ML VIAL IVP ONE (16:00)
[2018-10-26] MEDS ORDERED: OXYTOCIN 10 UNIT/ML VIAL IV ONE (16:00)
[2018-10-26] MEDS ORDERED: fentaNYL 100 MCG/2 ML VIAL IVP ONE (16:00)
[2018-10-26] MEDS ORDERED: MORPHINE PF 5 MG/10 ML AMP EP ONE (16:00)
[2018-10-26] MEDS ORDERED: ACETAMINOPHEN 1,000 MG/100 ML 100 ML IV ONE (16:04)
[2018-10-26] MEDS ORDERED: diphenhydrAMINE 25 MG CAPSULE PO PRN (16:12)
[2018-10-26] MEDS ORDERED: SODIUM CHLORIDE FLUSH 0.9% 10 ML SYRINGE IVP PRN (16:12)
[2018-10-26] MEDS: oxyCODONE 5 MG TABLET PO PRN ×2 (16:52→21:04)
[2018-10-26] MEDS: KETOROLAC 30 MG/ML VIAL IV SCH ×2 (17:46→22:40)
[2018-10-26] MEDS: ACETAMINOPHEN 500 MG TABLET PO SCH (17:46)
[2018-10-26] MEDS: SODIUM CHLORIDE FLUSH 0.9% 10 ML SYRINGE IVP SCH ×3 (17:47→22:40)
[2018-10-26] MEDS: SODIUM CHLORIDE FLUSH 0.9% 10 ML SYRINGE IVP PRN (20:22)
[2018-10-26] MEDS: DOCUSATE SODIUM 100 MG CAPSULE PO SCH (21:03)
[2018-10-26] MEDS: SIMETHICONE CHEW 80 MG TABLET PO SCH (22:40)
[2018-10-27] MEDS: ACETAMINOPHEN 500 MG TABLET PO SCH ×3 (00:59→16:53)
[2018-10-27] MEDS: oxyCODONE 5 MG TABLET PO PRN ×6 (00:59→23:51)
--- NOTE | 2018-10-27 01:32 | OPERATIVE REPORT ---
DATE OF SERVICE: 10/26/2018 Physician: Kaz Peralta MD PREOPERATIVE DIAGNOSES 1. Term cyesis. 2. Episodes of bradycardia. 3. Acute left lower abdominal pain with bright red vaginal bleeding, suspect abruption. POSTOPERATIVE DIAGNOSIS: Occult prolapsed cord on the right-hand side. PROCEDURE: Stat primary low transverse section. SURGEON: Dr. Kaz Peralta ANCIENT ART CURATOR: Delbert Brizuela CNM ANESTHESIA PROVIDER: Shell Inman CRNA ANESTHETIC: Epidural. FINDINGS: Live , Apgars 8 and 9, vertex presentation, with an occult prolapsed cord on patient's right-hand side. INTRAVENOUS FLUIDS: 1000 mL ESTIMATED BLOOD LOSS: 500 mL URINE OUTPUT: 200 mL PROCEDURE: Patient was taken back to the operating room in an expeditious fashion. She was prepped and draped in the usual fashion. Patient was identified. A time-out was performed, at which time her anesthesia was checked. It was noted to be adequate, so a Pfannenstiel incision was carried down through the subcutaneous tissue to the fascia and the fascia incised transversely. Then, using both blunt and sharp dissection, it was freed from the rectus abdominis. The peritoneum was entered high. Care was taken to avoid any injury to bowel or bladder. At this point, bladder flap was developed using both blunt and sharp dissection. Then, a low transverse uterine incision was accomplished using a #10 blade and bandage scissors. The cord was immediately encountered on patient's right-hand side. The was noted to be left occiput posterior. The head of the infant was rotated occiput anterior, delivered through the incision, and then the remainder of the was delivered without difficulty. Infant was vigorous at this time. The amniotic fluid was clear. Cord was doubly clamped and divided. was handed to the nursery team that was standing by. A segment of cord was then immediately clamped and sent for cord gases. Cord blood samples were obtained. Following this, the uterus was exteriorized, wrapped in a moist lap, and the placenta was delivered. The internal portion of the uterus was cleansed with a dry lap. There was no evidence of retained placental tissue. Placenta appeared to be intact. There was arterial bleeding noted on the left-hand side of the uterine incision. This was treated with a drgymm-ha-kozga of #0 Vicryl, and then the uterine incision was closed using a running locking suture of #0 Vicryl and then imbricated with #0 Vicryl. The incision showed evidence of good hemostasis without any hematomas or further bleeding noted. The cul-de-sac was cleared of any clot as well as the gutters. The estimated blood loss was accomplished at that time. It was felt to be roughly 400 mL. At this point, the uterus was delivered back into the abdominal cavity. The gutters and cul-de-sac were irrigated with copious amounts of sterile saline. The peritoneum was closed utilizing 2-0 Vicryl in a running suture, and the rectus was reapproximated with #2-0 Vicryl. The rectus showed no bleeding, so the fascia was closed utilizing looped PDS. Care was taken to bury the knot as much as possible to decrease wound discomfort. Subcutaneous tissue was reapproximated with interrupted sutures of 2-0 Vicryl, and the incision itself was closed using 4-0 Monocryl in a subcuticular stitch. A wound VAC was placed, and there was evidence of good suction at this time. At this point, patient was rolled to have her epidural removed, and there was noted to be probably 100 mL of additional blood between the legs. The estimated blood loss was revised upward to 500 mL. Sponge and needle counts were noted to be correct. Patient tolerated the procedure well and was taken to the recovery room in stable condition. TD: 10/26/2018 16:33 DEANGELO
[2018-10-27] MEDS: SODIUM CHLORIDE FLUSH 0.9% 10 ML SYRINGE IVP PRN (04:29)
[2018-10-27] MEDS: KETOROLAC 30 MG/ML VIAL IV SCH ×2 (04:29→10:38)
[2018-10-27 06:43] LABS: BASOPHILS % (AUTO) 0.2 %; EOSINOPHILS % (AUTO) 0.2 %; HGB - HEMOGLOBIN 11.3 g/dL (12.0-16.0); LYMPHOCYTES # (AUTO) 1.4 10^3/uL (1.5-3.5); LYMPHOCYTES % (AUTO) 9.5 %; MEAN CORPUSCULAR HEMOGLOBIN 32.1 pg (27.0-31.0); MEAN CORPUSCULAR HGB CONC 33.9 g/dL (32.0-36.0); MEAN CORPUSCULAR VOLUME 94.9 fL (81.0-99.0); MEAN PLATELET VOLUME 8.1 fL (7.9-10.8); MONOCYTES # (AUTO) 0.6 10^3/uL (0.0-1.0); MONOCYTES % (AUTO) 4.4 %; NEUTROPHILS # (AUTO) 12.6 10^3/uL (1.5-6.6); NEUTROPHILS % (AUTO) 85.7 %; PLT - PLATELET COUNT 194 10^3/uL (130-450); RED BLOOD COUNT 3.53 10^6/uL (4.20-5.40); RED CELL DISTRIBUTION WIDTH 15.2 % (12.0-15.0); WHITE BLOOD COUNT 14.7 x10^3/uL (4.8-10.8)
[2018-10-27] MEDS: LACTATED RINGERS 1,000 ML IV SCH ×4 (07:40→13:38)
[2018-10-27] MEDS: OXYTOCIN/SODIUM CHLORIDE 500 ML IV SCH (07:40)
[2018-10-27] MEDS: SIMETHICONE CHEW 80 MG TABLET PO SCH ×2 (08:15→15:33)
[2018-10-27] MEDS: DOCUSATE SODIUM 100 MG CAPSULE PO SCH ×2 (08:15→21:05)
[2018-10-27] MEDS: SODIUM CHLORIDE FLUSH 0.9% 10 ML SYRINGE IVP SCH (10:38)
--- NOTE | 2018-10-27 10:52 | ANESTHESIA POST OP EVALUATION ---
Anesthesia Post Eval - Post Anesthesia Eval CV Function Including HR & BP: positive: Stable Pain Control: positive: Adequate (states pain 3/10, incisional) Nausea & Vomiting: positive: Negative Mental Status: positive: Appropriate Anesthesia Complications: positive: None (Labor epidural that converted to stat C/S for vaginal bleeding, both mom and baby doing well. Discussed spinal headache at this point would be rare but to call if she develops symptoms, I also told her back pain is common for a week or two after epidural and she may take perscribed pain medications (by Dr. Peralta, he was present during my visit.) Overall the patient seemed satified with her care.)
--- NOTE | 2018-10-27 11:00 | PROVIDER PROGRESS NOTE ---
Subjective - General Admit Date: 10/25/18 Procedure Date: 10/26/18 Post Op Days: 1 Procedure Performed: STAT PLT C/S - Review of Systems Wound/Incisions: positive: Dressing dry and intact (Wound VAC) General: positive: No symptoms (Pain 3/10.) Pulmonary: positive: No symptoms Cardiovascular: positive: No symptoms Gastrointestinal: negative: Flatus Genitourinary: positive: Other (Silverman draining) Objective - Patient Data Reviewed Vital Signs: Yes Vital Signs: Vital Signs x48h Temp Pulse Resp BP Pulse Ox 10/27/18 09:37 36.8 C 89 16 129/62 97 10/27/18 03:37 37.1 C 86 16 131/79 H 98 Weight: Weight 10/25/18 10/26/18 10/27/18 23:59 23:59 23:59 Weight (kg) 66.678 kg Intake & Output: Intake and Output Totals x24h 10/25/18 10/26/18 10/27/18 23:59 23:59 23:59 Intake Total 290 2595.5 Output Total 4190 1390 Balance 290 -1594.5 -1390 - Lab Results Lab Results: 10/27/18 06:15 Other Lab Results: Lab Results x24hrs 10/27/18 Range/Units 06:15 WBC 14.7 H (4.8-10.8) x10^3/uL RBC 3.53 L (4.20-5.40) 10^6/uL Hgb 11.3 L (12.0-16.0) g/dL Hct 33.5 L (37.0-47.0) % MCV 94.9 (81.0-99.0) fL MCH 32.1 H (27.0-31.0) pg MCHC 33.9 (32.0-36.0) g/dL RDW 15.2 H (12.0-15.0) % Plt Count 194 (130-450) 10^3/uL MPV 8.1 (7.9-10.8) fL Neut # (Auto) 12.6 H (1.5-6.6) 10^3/uL Lymph # (Auto) 1.4 L (1.5-3.5) 10^3/uL [place] # (Auto) 0.6 (0.0-1.0) 10^3/uL Eos # (Auto) 0.0 (0.0-0.7) 10^3/uL Baso # (Auto) 0.0 (0.0-0.1) 10^3/uL Absolute Nucleated RBC 0.01 x10^3/uL Nucleated RBC % 0.0 /100WBC - Current Medications Current Medications: Current Medications Generic Name Dose Route Start Last Admin Trade Name Freq PRN Reason Stop Dose Admin Acetaminophen 1,000 mg 10/26/18 17:00 10/27/18 09:35 Tylenol PO 1,000 mg Q8H MALAIKA Administration Docusate Sodium 100 mg 10/26/18 21:00 10/27/18 08:15 Colace 100mg Capsule PO 100 mg BID MALAIKA Administration Lactated Ringer's 1,000 mls @ 150 mls/hr 10/25/18 20:30 10/27/18 07:40 Lr IV Not Given .Q6H40M MALAIKA Oxytocin/Sodium Chloride 500 mls @ 1 mls/hr 10/25/18 21:00 10/27/18 07:40 Pitocin/Sodium Chloride IV Not Given TITR PENDING SALE TO [facility] Protocol 1 MILLIUNIT/MIN Lactated Ringer's 1,000 mls @ 100 mls/hr 10/26/18 17:00 10/27/18 07:41 Lr IV Not Given .Q10H MALAIKA Ketorolac Tromethamine 30 mg 10/26/18 17:00 10/27/18 10:38 Toradol Inj (30mg) IV 10/27/18 11:01 30 mg Q6H MALAIKA Administration Oxycodone HCl 5 mg 10/26/18 16:12 10/27/18 06:44 Roxicodone PO 5 mg Q4HR PRN Administration PAIN Simethicone 80 mg 10/26/18 22:00 10/27/18 08:15 Mylicon PO 80 mg TID MALAIKA Administration Sodium Chloride 10 ml 10/25/18 20:20 10/27/18 04:29 Normal Saline Flush 0.9% IVP 10 ml PRN PRN Administration NEEDED PER PROVIDER ORDERS Sodium Chloride 10 ml 10/26/18 16:12 10/27/18 10:38 Normal Saline Flush 0.9% IVP 10 ml PRN PRN Administration NEEDED PER PROVIDER ORDERS Sodium Chloride 10 ml 12/28/18 17:00 10/27/18 10:38 Normal Saline Flush 0.9% IVP 10 ml 0100,0900,1700 PENDING SALE TO [facility] Administration - Physical Exam Wound/Incisions: positive: Dressing dry and intact General Appearance: positive: No acute distress, Alert Respiratory: positive: Chest non-tender, No respiratory distress, Breath sounds nml Cardiovascular: positive: Regular rate & rhythm, No murmur, No gallop Abdomen: positive: Nml bowel sounds, Mass (U-1) Back: negative: CVA tenderness (R), CVA tenderness (L) Skin: positive: Color nml, No rash, Warm Extremities: negative: Calf tenderness, Jerad's sign/cords Neurologic/Psychiatric: positive: Oriented x3 Impression/Plan - Problem List Problem List: SP PLTC/S POD #1 Progressing. GILBERTO Discontinue Silverman Ambulate
[2018-10-27] MEDS: IBUPROFEN 600 MG TABLET PO SCH ×2 (16:53→23:07)
[2018-10-28] MEDS: ACETAMINOPHEN 500 MG TABLET PO SCH ×2 (00:57→09:01)
[2018-10-28] MEDS: SIMETHICONE CHEW 80 MG TABLET PO SCH ×3 (01:24→12:55)
[2018-10-28] MEDS: oxyCODONE 5 MG TABLET PO PRN ×3 (04:35→12:55)
[2018-10-28] MEDS: IBUPROFEN 600 MG TABLET PO SCH ×2 (04:35→10:33)
[2018-10-28] MEDS: DOCUSATE SODIUM 100 MG CAPSULE PO SCH (08:20)
[2018-10-28 08:36] VITALS: BP 124/67
--- NOTE | 2018-10-28 09:59 | PROVIDER PROGRESS NOTE ---
Subjective - General Admit Date: 10/25/18 Procedure Date: 10/26/18 Post Op Days: 2 Procedure Performed: STAT PLT C/S - Review of Systems Wound/Incisions: positive: Dressing dry and intact (good vacuume) General: positive: No symptoms (Pain 2/10.) Pulmonary: positive: No symptoms Cardiovascular: positive: No symptoms Gastrointestinal: positive: Flatus Genitourinary: positive: No symptoms Psychiatric: positive: No symptoms Objective - Patient Data Reviewed Vital Signs: Yes Vital Signs: Vital Signs x48h Temp Pulse Resp BP Pulse Ox 10/28/18 08:31 37.0 C 85 18 124/67 98 10/28/18 04:44 36.7 C 80 16 111/64 97 Intake & Output: Intake and Output Totals x24h 10/26/18 10/27/18 10/28/18 23:59 23:59 23:59 Intake Total 2595.5 Output Total 4190 3490 Balance -1594.5 -3490 - Lab Results Lab Results: 10/27/18 06:15 - Current Medications Current Medications: Current Medications Generic Name Dose Route Start Last Admin Trade Name Edgarq PRN Reason Stop Dose Admin Acetaminophen 1,000 mg 10/26/18 17:00 10/28/18 09:01 Tylenol PO 1,000 mg Q8H MALAIKA Administration Docusate Sodium 100 mg 10/26/18 21:00 10/28/18 08:20 Colace 100mg Capsule PO 100 mg BID MALAIKA Administration Lactated Ringer's 1,000 mls @ 150 mls/hr 10/25/18 20:30 10/27/18 13:37 Lr IV Not Given .Q6H40M MALAIKA Oxytocin/Sodium Chloride 500 mls @ 1 mls/hr 10/25/18 21:00 10/27/18 07:40 Pitocin/Sodium Chloride IV Not Given TITR MALAIKA Protocol 1 MILLIUNIT/MIN Lactated Ringer's 1,000 mls @ 100 mls/hr 10/26/18 17:00 10/27/18 13:38 Lr IV Not Given .Q10H MALAIKA Ibuprofen 600 mg 10/27/18 17:00 10/28/18 04:35 Motrin PO 600 mg Q6H MALAIKA Administration Oxycodone HCl 10 mg 10/27/18 23:00 10/28/18 08:20 Roxicodone PO 10 mg Q4HR PRN Administration PAIN Simethicone 80 mg 10/26/18 22:00 10/28/18 08:20 Mylicon PO 80 mg TID MALAIKA Administration Sodium Chloride 10 ml 10/25/18 20:20 10/27/18 04:29 Normal Saline Flush 0.9% IVP 10 ml PRN PRN Administration NEEDED PER PROVIDER ORDERS Sodium Chloride 10 ml 10/26/18 16:12 10/27/18 10:38 Normal Saline Flush 0.9% IVP 10 ml PRN PRN Administration NEEDED PER PROVIDER ORDERS Sodium Chloride 10 ml 10/26/18 17:00 10/27/18 10:38 Normal Saline Flush 0.9% IVP 10 ml 0100,0900,1700 MALAIKA Administration - Physical Exam Wound/Incisions: positive: Dressing dry and intact General Appearance: positive: No acute distress (breast pumping), Alert Respiratory: positive: Chest non-tender, No respiratory distress, Breath sounds nml Cardiovascular: positive: Regular rate & rhythm, No murmur, No gallop Abdomen: positive: Non-tender, Nml bowel sounds, Mass (u-1) Extremities: negative: Calf tenderness, Jerad's sign/cords Neurologic/Psychiatric: positive: Oriented x3 Impression/Plan - Problem List Problem List: pt had trouble with pain control last night. better this AM. Pt desires to go home. Discharge medications Oxycodone 5 mg #25 Motrin 800 mg Colace 200 mg reviewed breast feeding Contraception RTC 1,3,8
--- NOTE | 2018-10-28 10:12 | DELIVERY NOTE ---
Delivery Note - Labor Labor: positive: Spontaneous - Delivery Method Delivery Method: positive: Primary - Presentation Presentation: positive: Vertex, LOP - left occiput posterior - Nuchal Cord Nuchal Cord: positive: None (cord was low adn anterior between the left shoulder and the uterine wall.) - Anesthetic Anesthetic Type: - Amniotic Fluid Description Amniotic Fluid Description: positive: Clear - Episiotomy Type Episiotomy Type: positive: None - Laceration Laceration: positive: None - Delivery Outcome Delivery Outcome: positive: Livebirth - Comfort Comfort: positive: Bulb syringe, Stimulated, [place] used sex: positive: Female - Cord Cord: positive: 3 vessels - Post Delivery Events Post Delivery Events: positive: No post delivery events - Delivery Comments (Free Text/Narrative) Delivery Comments (Free Text/Narrative): STAT PLT C/S for suspected abruption
--- NOTE | 2018-10-28 10:14 | Discharge Plan ---
Discharge Plan Disposition: 01 Home, Self Care Condition: Good Diet: Regular Shower Restrictions: No Driving Restrictions: No (not while taking Oxycodone) No Smoking: If you smoke, Please STOP! Call for help.
--- NOTE | 2018-10-28 10:37 | DISCHARGE SUMMARY ---
Physician: Kaz Peralta MD DATE OF ADMISSION: 10/25/2018 DATE OF DISCHARGE: 10/28/2018 ADMITTING DIAGNOSES: 1. A 18-year-old G1, P0 female at 38.5 weeks. 2. Active labor. DISCHARGE DIAGNOSIS: Suspected abruption, occult prolapsed cord. PROCEDURES: 1. Epidural Pitocin augmentation. 2. Primary low transverse section. PRESENTING HISTORY: The patient is a 18-year-old G1, P0 female who presented at 38.5 weeks in active labor. Her OB course had been unremarkable. She had early visits, and she was seen regularly durin g her care. She was noted to be O positive, group B strep negative, and rubella immune.: LABORATORIES: The patient's CBC on admission showed a white count of 12.6, hemoglobin 13.3, hematocr it 38.2, platelets were noted to be 228. Because of a transient elevation of blood pressure, she had some PIH labs drawn. Her protein:creatinine ratio was 0. Her uric acid was 5. Her AST and ALT wer e noted to be normal. Postoperatively, her hemoglobin fell to 11.3, 35.5, and platelets were 194. HOSPITAL COURSE: The patient was admitted, an epidural was placed for labor analgesia. Her examinat ions showed her to be 5 cm, 90%, -1, but very posterior. She was augmented in labor and she brought this around. However, she had an episode of bradycardia down to the 90s, which lasted for 5 minutes. This responded to change. An IUPC was placed because of difficulty ascertaining her contraction pa ttern despite having a thin abdominal wall. She then developed sudden marked left uterine and abdomi nal pain with bright red vaginal bleeding. Because of the suspicion of an abruption, she was taken [facility] for a stat section, which was performed without difficulty. At time of delivery, she de livered a live with scores of 8 and 9. Her blood loss at surgery was unremarkable; 500 mL. Her course has been unremarkable with the exception of some mild difficulty with pain cont rol last night requiring 10 mg of oxycodone set at 5. She is doing well at this time. She is ambula ting. She is voiding. She is passing flatus. She is being discharged to home with instructions to followup in the office in 1, 3, and 8 weeks. She is being discharged with medications of oxycodone 5 mg, #25. She is getting Motrin 800 mg, #30, Colace 200 mg. We have discussed , and it s advantages. We have also discussed the fact this is not adequate contraception. We have also revi ewed the need for contraception. TD: 10/28/2018 10:18
== END 2018-10-28 13:40 | disposition home or self-care (01) | DRG 786 ==
LOC: WFO 18:51 → FBP 18:52 → WFO 20:27 → FBP 20:28
PROVIDERS: ADMIT Obstetrics & Gynecology; ATTEND Obstetrics & Gynecology
PROC: 10907ZC Drainage of Amniotic Fluid, Therapeutic from Products of Conception, Via Natural or Artificial Opening (ICD-10-PCS; 2018-10-26)
PROC: 10H07YZ Insertion of Other Device into Products of Conception, Via Natural or Artificial Opening (ICD-10-PCS; 2018-10-26)
PROC: 10D00Z1 Extraction of Products of Conception, Low, Open Approach (ICD-10-PCS; principal; 2018-10-26 14:30)
DX: O64.0XX0 Obstructed labor due to incomplete rotation of fetal head, not applicable or unspecified (principal); O45.93 Premature separation of placenta, unspecified, third trimester; O69.0XX0 Labor and delivery complicated by prolapse of cord, not applicable or unspecified; O76 Abnormality in fetal heart rate and rhythm complicating labor and delivery; O99.89 Other specified diseases and conditions complicating pregnancy, childbirth and the puerperium; R03.0 Elevated blood-pressure reading, without diagnosis of hypertension; Z3A.38 38 weeks gestation of pregnancy; Z37.0 Single live birth
CPT/HCPCS: 36415; 82570; 83615; 84156; 84450; 84550; 85025; 99213

== ENCOUNTER 2018-11-04 17:07 | Emergency (ER) | payer MEDICAID ==
[2018-11-04 17:16] VITALS: BP 119/82
--- NOTE | 2018-11-04 17:28 | ED Physician Documentation ---
PD HPI WOUND RECHECK - Stated complaint Stated Complaint: HARDWARE REMOVAL - Chief complaint Chief Complaint: Wound - Histroy obtained from History obtained from: Patient - History of Present Illness Location: Other (She had a recent procedure. The wound VAC stopped working and she was referred here for a wound check. She has no specific complaints. Pain is controlled with a single pain pill per day.) Review of Systems Constitutional: denies: Fever, Chills GI: denies: Abdominal Pain, Nausea, Vomiting : reports: Vaginal bleeding (mild). 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 : None HEENT: None Psych: None Musculoskeletal: None Derm: None - Past Surgical History Past Surgical History: No - Present Medications Home Medications: Ambulatory Orders Medication Instructions Recorded Confirmed Ibuprofen 11/04/18 oxyCODONE [Roxicodone] 11/04/18 11/04/18 - Allergies Allergies/Adverse Reactions: Allergies Allergy/AdvReac Type Severity Reaction Status Date / Time No Known Drug Allergies Allergy Verified 11/04/18 17:16 - Social History Does the pt smoke?: No Smoking Status: Never smoker Does the pt drink ETOH?: No Does the pt have substance abuse?: No - Immunizations Immunizations are current?: Yes - POLST Patient has POLST: No PD ED PE NORMAL - Vitals Vital signs reviewed: Yes - General General: Alert and oriented X 3, No acute distress - Abdomen Abdomen: Normal bowel sounds, Non tender, Other (Wound VAC was removed, her Pfannenstiel incision was clean dry and intact and it was replaced with Steri-Strips.) - Neuro Neuro: Alert and oriented X 3, Normal speech Results - Vitals Vitals: Vital Signs - 24 hr 11/04/18 17:13 Temperature 36.4 C L Heart Rate 80 Respiratory 16 Rate Blood Pressure 119/82 H O2 Saturation 96 Oxygen O2 Source Room air Departure - Departure Disposition: Home, Self Care Clinical Impression: Encounter for management of wound VAC Condition: Good Record reviewed to determine appropriate education?: Yes Instructions: ED Wound Check Post Op No Infec Comments: Keep your appointment on Monday as scheduled. Return for new or worsening symptoms.
== END 2018-11-04 17:41 | disposition home or self-care (01) ==
LOC: ED 17:07
DX: Z48.03 Encounter for change or removal of drains (principal); Z48.01 Encounter for change or removal of surgical wound dressing
CPT/HCPCS: 99281; 99282

== ENCOUNTER 2020-05-13 13:27 | Outpatient (CLI) | payer SELFPAY | END 2020-05-13 13:28 | disposition home or self-care (01) | LOC: COV 13:27 | PROVIDERS: ATTEND Family Medicine | DX: Z20.828 Contact with and (suspected) exposure to other viral communicable diseases (principal) ==

== ENCOUNTER 2022-11-28 13:53 | Emergency (ER) | payer MEDICAID, OTHER ==
[2022-11-28 14:12] VITALS: BP 90/49
--- NOTE | 2022-11-28 14:35 | XRAY Report ---
PROCEDURE: Ankle 3 View LT INDICATIONS: Trauma TECHNIQUE: 3 views of the ankle were acquired. COMPARISON: None FINDINGS: Bones: No fractures or dislocations. Ankle mortise is normally aligned. No suspicious bony lesions . Soft tissues: Lateral malleolar ankle edema. Achilles tendon appears normal. IMPRESSION: Lateral malleolar ankle edema. No visualized acute fracture or dislocation. However, occ ult injury cannot be excluded. Recommend short interval imaging follow-up in 7-10 days as clinically indicated for additional evaluation. Reviewed by: Leia Burdick MD on 11/28/2022 2:34 PM PST Approved by: Leia Burdick MD on 11/28/2022 2:34 PM PST Station ID: [id number]
--- NOTE | 2022-11-28 15:13 | ED Physician Documentation ---
PD HPI LOWER EXT INJURY - Stated complaint Stated Complaint: L ANKLE INJ - Chief complaint Chief Complaint: Trauma Ext - History obtained from History obtained from: Patient - History of Present Illness PD HPI LOW EXT INJURY LOCATION: Right Type of injury: Twist Where injury occurred: Home - Additional information Additional information: 22 year old female presents with Leftankle pain after twisting it yesterday while walking at home. She Has been walking on it though it is uncomfortable. She has not attempted any other treatment. 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 She not sustained any other injuries in the fall, denies any prodromal symptoms such as dizziness or weakness, and has no other concerns today. 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 : None HEENT: None Psych: None Musculoskeletal: None Derm: None - Past Surgical History Past Surgical History: No - Present Medications Home Medications: Ambulatory Orders Medication Instructions Recorded Confirmed Ibuprofen 11/04/18 oxyCODONE [Roxicodone] 11/04/18 11/04/18 - Allergies Allergies/Adverse Reactions: Allergies Allergy/AdvReac Type Severity Reaction Status Date / Time No Known Drug Allergies Allergy Verified 11/28/22 14:12 - Social History Does the pt smoke?: No Smoking Status: Never smoker Does the pt drink ETOH?: No Does the pt have substance abuse?: No - Immunizations Immunizations are current?: Yes - POLST Patient has POLST: No PD ED PE NORMAL - Vitals Vital signs reviewed: Yes - General General: Alert and oriented X 3, No acute distress, Well developed/nourished - HEENT HEENT: Atraumatic, Moist mucous membranes - Derm Derm: Normal color, Warm and dry, No rash - Extremities Extremities: No deformity, Normal ROM s pain, Other (Mild tenderness of the left Ankle bilaterally into the arch. No obvious swelling, deformity or erythema) Results - Vitals Vitals: Vital Signs - 24 hr 11/28/22 14:08 Temperature 37.1 C Heart Rate 77 Respiratory 15 Rate Blood Pressure 90/49 L O2 Saturation 97 Oxygen O2 Source Room air PD Medical Decision Making - ED course Complexity details: reviewed results, re-evaluated patient, considered differential, d/w patient ED course: 22-year-old female presents with left ankle pain after twisting it yesterday. She is well-appearing on physical exam with mild left ankle swelling and tenderness. We obtain x-ray to rule out fracture and this was negative. Suspected patient has a sprain and recommended cool compress, ibuprofen and ice elevation. The patient may walk on as tolerated the I did encourage her to take some time to rest for the next 4 days if able. If ongoing pain after 2 weeks, patient to follow-up with her PCP. Departure - Departure Disposition: Home, Self Care Clinical Impression: Ankle injury Qualifiers: Encounter type: initial encounter Laterality: left Qualified Code(s): S99.912A - Unspecified injury of left ankle, initial encounter Condition: Good Instructions: ED Sprain Ankle W X Ray Comments: Your xray shows no broken bones but you likely have a sprain. You can bear weight on it as tolerated but I do recommend that you try to elevate it and use a ice pack on it several times a day, you can take ibuprofen and Tylenol for pain. It is okay to go to work but it would be good if you could rest for the next couple of days to allow the ankle to heal. Pain typically lasts 1 to 2 weeks before improving. If you pain beyond that time, see your regular doctor for reimaging. Discharge Date/Time: 11/28/22 15:23
== END 2022-11-28 15:23 | disposition home or self-care (01) ==
LOC: ED 13:53
DX: S99.912A Unspecified injury of left ankle, initial encounter (principal); X50.1XXA Overexertion from prolonged static or awkward postures, initial encounter; Y93.89 Activity, other specified
CPT/HCPCS: 99283